=== PATIENT | male | born 1975 | race Caucasian/White ===

== ENCOUNTER 2017-12-03 21:03 | Emergency (ER) | payer OTHER ==
[~2017-12-03] VITALS: Ht 165.1 cm; Wt 79.4 kg
[2017-12-03] MEDS ORDERED: METFORMIN HCL500 MG (21:51)
[2017-12-03] MEDS ORDERED: LISINOPRIL-HCT1 EACH (21:52)
[2017-12-04] MEDS ORDERED: INDOMETHACIN75 MG PO (03:46)
== END 2017-12-04 03:54 | disposition home or self-care (01) ==
LOC: ER 21:03
DX: M10.071 Idiopathic gout, right ankle and foot (principal)

== ENCOUNTER 2024-07-20 13:50 | Emergency (ER) | payer OTHER ==
[~2024-07-20] VITALS: Ht 152.4 cm; Wt 76.2 kg
[~2024-07-20 13:50] MED LIST: INDOMETHACIN75 MG PO; LISINOPRIL-HCT1 EACH; METFORMIN HCL500 MG
[2024-07-20] MEDS ORDERED: ONDANSETRON HCL 2 MG/ML VIAL IV ONE (14:45)
[2024-07-20] MEDS ORDERED: 0.9 % SODIUM CHLORIDE 500 ML IV ONE (14:45)
[2024-07-20 15:32] LABS: HEMATOCRIT 36.3 % (39.0-48.0); HEMOGLOBIN 12.8 g/dL (13-16.00); MEAN CELL VOLUME 84.3 fL (80.0-100.00); MEAN CORPUSCULAR HEMOGLOBIN 29.7 pg (27.00-32.0); MEAN CORPUSCULAR HGB CONC 35.3 g/dl (32.0-36.0); PLATELET COUNT 217 K/uL (150-450); RED CELL DISTRIBUTION WIDTH 13.8 % (11.5-14.5)
[2024-07-20 15:50] LABS: PH,URINE 6.5 (5.0-8.0); URINE APPEARANCE Clear; URINE BACTERIA 17.6 uL (0.0-1933); URINE BILIRRUBIN Negative (NEGATIVE); URINE BLOOD Negative; URINE COLOR Yellow; URINE EPITHELIAL CELLS 4.3 uL (0.0-38.8); URINE KETONE Trace (NEGATIVE); URINE LEUKOCYTE Negative; URINE NITRATE Negative; URINE PROTEIN Negative (NEGATIVE); URINE RBC 2.2 uL (0.0-20.8); URINE WBC 2.7 uL (0.0-23.2)
[2024-07-20 15:56] LABS: URINE GLUCOSE >=1000 MG/DL (NEGATIVE)
[2024-07-20 16:09] LABS: BILIRUBIN TOTAL 0.42 mg/dL (0.3-1.2); CALCIUM 9.6 mg/dL (8.5-10.1); CREATININE SERUM 0.98 mg/dL (0.70-1.30); GFR 80.96; GLOBULINA 4.1 G/DL (2.4-3.5); POTASSIUM 3.94 mEq/L (3.5-5.1); TOTAL PROTEIN 8.1 gm/dL (6.4-8.2)
[2024-07-20] MEDS ORDERED: METRONIDAZOLE/SODIUM CHLORIDE 500 MG/100 ML PIGGYBACK IV ONE (20:45)
[2024-07-20] MEDS ORDERED: CIPROFLOXACIN IN 5 % DEXTROSE 400 MG/200 ML PIGGYBAG IV ONE (20:45)
[2024-07-20] MEDS ORDERED: METRONIDAZOLE500 MG PO (20:49)
[2024-07-20] MEDS ORDERED: CIPRO500 MG PO (20:49)
[2024-07-20] MEDS ORDERED: PEPCID AC20 MG PO (20:49)
[2024-07-20] MEDS ORDERED: LEVSIN0.125 MG PO (20:49)
[2024-07-22] MEDS ORDERED: MEDROLPACK PO (10:59)
[2024-07-22] MEDS ORDERED: BENADRYL ALLERG25 MG PO (10:59)
== END 2024-07-21 00:03 | disposition home or self-care (01) ==
LOC: ER 13:52
PROVIDERS: Nurse Practitioner Family
DX: K57.32 Diverticulitis of large intestine without perforation or abscess without bleeding (principal); K76.0 Fatty (change of) liver, not elsewhere classified; I10 Essential (primary) hypertension; Z88.0 Allergy status to penicillin; Z88.8 Allergy status to other drugs, medicaments and biological substances

== ENCOUNTER 2024-07-22 08:56 | Emergency (ER) | payer OTHER ==
[~2024-07-22] VITALS: Ht 165.1 cm; Wt 74.4 kg
[~2024-07-22 08:56] MED LIST changes: +CIPRO500 MG PO; +LEVSIN0.125 MG PO; +METRONIDAZOLE500 MG PO; +PEPCID AC20 MG PO
[2024-07-22] MEDS ORDERED: EPINEphrine 10 ML DISP.SYRIN IV ONE (09:30)
[2024-07-22] MEDS ORDERED: METHYLPREDNISOLONE SOD SUCC 40 MG VIAL IV ONE (09:30)
[2024-07-22] MEDS ORDERED: DIPHENHYDRAMINE HCL 50 MG/ML VIAL 1ML IV ONE (09:30)
[2024-07-22] MEDS ORDERED: BENADRYL ALLERG25 MG PO (10:59)
[2024-07-22] MEDS ORDERED: MEDROLPACK PO (10:59)
== END 2024-07-22 12:01 | disposition home or self-care (01) ==
LOC: ER 08:58
DX: T50.995A Adverse effect of other drugs, medicaments and biological substances, initial encounter (principal); Y92.89 Other specified places as the place of occurrence of the external cause; Z88.0 Allergy status to penicillin; Z88.8 Allergy status to other drugs, medicaments and biological substances; I10 Essential (primary) hypertension

== ENCOUNTER 2024-07-22 21:17 | Emergency (ER) | payer OTHER ==
[~2024-07-22] VITALS: Ht 165.1 cm; Wt 74.4 kg
[~2024-07-22 21:17] MED LIST changes: +BENADRYL ALLERG25 MG PO; +MEDROLPACK PO
[2024-07-22] MEDS ORDERED: EPINEphrine 10 ML DISP.SYRIN IJ ONE (22:00)
[2024-07-22] MEDS ORDERED: DIPHENHYDRAMINE HCL 50 MG/ML VIAL 1ML IV ONE (22:00)
[2024-07-22] MEDS ORDERED: METHYLPREDNISOLONE SOD SUCC 125 MG VIAL IV ONE (22:00)
[2024-07-22] MEDS ORDERED: FAMOtidine 10 MG/ML (4ML VIAL) IV PUSH ONE (22:00)
[2024-07-22] MEDS ORDERED: 0.9 % SODIUM CHLORIDE 1,000 ML IV ONE (22:30)
== END 2024-07-23 00:17 | disposition home or self-care (01) ==
LOC: ER 21:19
DX: R21 Rash and other nonspecific skin eruption (principal); T78.40XA Allergy, unspecified, initial encounter; I10 Essential (primary) hypertension; Z88.0 Allergy status to penicillin; Z88.1 Allergy status to other antibiotic agents